=== PATIENT | female | born 1985 | race Caucasian/White ===

== ENCOUNTER 2016-10-25 21:18 | Emergency (ER) | payer OTHER ==
--- NOTE | ~2016-10-25 | CR133 ---
[facility]. [facility] A Service of [facility] & [facility] RADIOLOGY TEXT RESULTS PATIENT: JOYCE STATON LOCATION: SED : 81 UNIT #: [id number] AGE: [address]: Ligia Razo APRN SEX: F ORDER DR: [id number] [place] [id number] E MR#: [id number] Acc #: [id number] NAME: JOYCE STATON : 1985 SEX: F STUDY DATE/TIME: 10/25/2016 21:25 UNIT: SED ROOM: STUDY DESCRIPTION: CR Forearm 2 View Rt Attending Physician: Ligia Razo A.P.R.N. Ordering Physician: Ligia Razo A.P.R.N. Primary Care Physician: Brooke Pepper A.P.R.N. MEDICAL IMAGING REPORT This report is preliminary unless electronic signature is present. EXAM Right forearm HISTORY Arm swelling after being bitten on Saturday this week. TECHNIQUE Two views of the forearm were obtained. FINDINGS AP and lateral views of the forearm show no evidence of fracture or destructive bone lesion. No periosteal elevation is seen. No radiodense foreign bodies are noted. Adjacent soft tissue structures are normal. IMPRESSION Normal forearm. Dictated by... Soy Cooper M.D. THIS IS AN ELECTRONICALLY VERIFIED REPORT Soy Cooper M.D. at 10/25/2016 10:23 PM RLF/pcl TD: 10/25/2016 21:48 JOB #: [id number] MEDICAL IMAGING REPORT Page 1 of 1
[~2016-10-25 21:18] MED LIST: AMOXICILLIN500 M1 PO; CELEXA PO; FLEXERIL PO; FLEXERIL10 MG PO; HYDROCODON-ACE1 EAC7 PO; LORTAB 5-325 M1 EACH PO; LORTAB 5/500 TA1 TA1 PO; MOBIC PO; NAPROXEN PO; ORUDIS75 M1 DOB; RITALIN PO; ULTRAM PO; VIBRAMYCIN100 M1 PO; VICODIN 5/500 T1 TAB PO; VOLTAREN75 MG PO; ZOFRANODT SL
== END 2016-10-25 22:18 | disposition home or self-care (01) ==
LOC: SED 21:18
DX: S51.851A Open bite of right forearm, initial encounter (principal); F41.9 Anxiety disorder, unspecified; F17.200 Nicotine dependence, unspecified, uncomplicated; W50.3XXA Accidental bite by another person, initial encounter; Y92.89 Other specified places as the place of occurrence of the external cause
CPT/HCPCS: 73090; 99283

== ENCOUNTER 2016-12-13 02:53 | Emergency (ER) | payer OTHER ==
[2016-12-13 03:53] LABS: URINE SOURCE CLEAN CATCH
[2016-12-13 03:58] LABS: BASOPHIL# 0.1 X10e3 (0-0.3); BASOPHIL% 0.5 % (0-2.5); EOSINOPHIL% 0.1 % (0.0-7.0); HEMATOCRIT 44.5 % (35.0-45.0); HEMOGLOBIN 15.1 gm/dL (12.0-16.0); LYMPHOCYTE# 1.4 X10e3 (1.0-3.5); MEAN CELL VOLUME 93.4 FL (83-96); MEAN CORPUSCULAR HEMOGLOBIN 31.7 PG (28-34); MEAN CORPUSCULAR HGB CONC 33.9 g/dL (30-36); MEAN PLATELET VOLUME 10.6 FL (6.5-11.5); MONOCYTE# 0.5 X10e3 (0-1.0); NEUTROPHIL# 11.6 X10e3 (1.5-7.1); NEUTROPHIL% 85.4 % (40-75); PLATELET COUNT 223 X10e3 (140-420); RED BLOOD COUNT 4.76 X10e (3.90-5.30); RED CELL DISTRIBUTION WIDTH 12.8 % (11.0-15.5); WHITE BLOOD COUNT 13.6 X10e3 (4.0-10.5)
[2016-12-13 03:59] LABS: DIFF IND NO; URINE APPEARANCE CLEAR; URINE BILIRUBIN NEG (NEG); URINE BLOOD NEG (NEG); URINE COLOR YELLOW; URINE GLUCOSE NEG (NEG); URINE KETONE NEG (NEG); URINE LEUKOCYTE ESTERASE NEG (NEG); URINE NITRATE NEG (NEG); URINE PH 5.5 (5-8); URINE PROTEIN NEG (NEG); URINE SPECIFIC GRAVITY 1.028 (1.003-1.035)
[2016-12-13 04:06] LABS: CULTURE INDICATED? NO
[2016-12-13 04:23] LABS: ALBUMIN SERUM 4.1 g/dL (3.5-5.0); BILIRUBIN, DIRECT 0.1 mg/dL (0.0-0.2); BILIRUBIN,INDIRECT 0.3 mg/dL (0.0-0.9); BILIRUBIN,TOTAL 0.4 mg/dL (0.2-2.0); BUN/CREATININE RATIO 12.5; CALCIUM SERUM 9.1 mg/dL (8.4-10.2); CREATININE SERUM 0.8 mg/dL (0.6-1.4); POTASSIUM 3.5 mmol/L (3.5-5.1); PROTEIN TOTAL SERUM 7.9 g/dL (6.0-8.3)
== END 2016-12-13 06:38 | disposition home or self-care (01) ==
LOC: CED 02:53
PROVIDERS: Emergency Medicine
DX: R11.2 Nausea with vomiting, unspecified (principal); R50.9 Fever, unspecified; F41.9 Anxiety disorder, unspecified; F17.210 Nicotine dependence, cigarettes, uncomplicated; Z88.1 Allergy status to other antibiotic agents; Z79.899 Other long term (current) drug therapy
CPT/HCPCS: 36415; 80048; 80076; 81003; 83690; 84703; 85025; 96361; 96374; 96375; 99284; J2405; J2765